=== PATIENT | female | born 1955 | race Caucasian/White ===

== ENCOUNTER → 2017-04-10 | Day surgery (SDC) | payer OTHER ==
--- NOTE | 2017-04-09 18:31 | History & Physical Pre-Op ---
General Information and HPI History of Present Illness: 61-year-old 1 para 1 with thickened endometrium on ultrasound admitted today for D&C hysteroscopy. She has been cleared by her countersinker for this Allergies/Medications Allergies: Coded Allergies: apple (Intermediate, THROAT ITCHING 12/02/15) celery (Intermediate, HIVES/ITCHY THROAT 12/02/15) tomato (Intermediate, HIVES/ITCHY THROAT 12/02/15) Uncoded Allergies: HAIR DYE (Severe, ANAPHYLAXIS 12/02/15) MELONS (Severe, ANAPHYLAXIS 04/02/17) CARROTS (Intermediate, HIVES/ITCHY THROAT 12/02/15) Home Med list Aspirin (Ecotrin) 81 MG TABLET.DR 1 TAB PO DAILY HEART HEALTH (Reported) Atorvastatin Calcium (Lipitor) 10 MG TABLET 1 TAB PO DAILY CHOLESTEROL ( Reported) CLOPIDOGREL BISULFATE (Clopidogrel) 75 MG TABLET 1 TAB PO DAILY BLOOD THINNER (Reported) Levothyroxine Sodium 50 MCG TABLET 1 TAB PO DAILY AC THYROID (Reported) Linagliptin (Tradjenta) 5 MG TABLET 1 TAB PO DAILY DIABETES (Reported) Metoprolol Tartrate (Lopressor) 25 MG TABLET 1 TAB PO BID BP (Reported) Olmesartan Medoxomil (Benicar) 20 MG TAB 1 TAB PO DAILY BP (Reported) Pantoprazole Sodium 40 MG TABLET.DR 1 TAB PO DAILY AC ACID REFLUX (Reported) Sertraline HCl 50 MG TABLET 1 TAB PO TID DEPRESSION (Reported) Vitamin E ([id number]) 400 IU SGL 1 SGL PO BID SUPPLEMENT (Reported) Past History Medical History Neurological: NONE EENT: NONE Cardiovascular: hypertension, hyperlipidemia, myocardial infarction, STENTS Respiratory: bronchitis Gastrointestinal: GERD Hepatic: FATTY LIVER Renal: NONE Musculoskeletal: NONE Psychiatric: NONE Endocrine: diabetes, hypothyroidism Blood Disorders: NONE Cancer(s): NONE 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 EENTM: Reports: no symptoms. Cardiovascular: Reports: no symptoms. Respiratory: Reports: no symptoms. GI: Reports: no symptoms. Genitourinary: Reports: no symptoms. Musculoskeletal: Reports: no symptoms. Skin: Reports: no symptoms. Neurological/Psychological: Reports: no symptoms. Hematologic/Endocrine: Reports: no symptoms. Immunologic/Allergic: Reports: no symptoms. All Other Systems: Reviewed and Negative Exam & Diagnostic Data Last 24 Hrs of Vital Signs/I&O vss Physical Exam: HEENT: Normocephalic atraumatic Chest: Clear to auscultation bilaterally Cardiovascular: Normal S1-S2 Abdomen: Soft nontender Pelvic: Deferred OR Extremities: No clubbing cyanosis or edema Assessment/Plan Assessment/Plan: Thickened endometrium on ultrasound, menopause D&C hysteroscopy As Ranked By This Provider Problem List: 1. Thickened endometrium
[~2017-04-10] VITALS: Ht 149.9 cm; Wt 68.9 kg
[~2017-04-10] MED LIST: ALPH-E-MIXED-4400 IU PO; ASPIR 8181 MG PO; ATORVASTATIN CA10 MG PO; BENICAR20 MG PO; CLOPIDOGREL75 MG PO; FIBERCON625 MG PO; IBUPROFEN600 MG PO; LEVOTHYROXINE0.05 M1 PO; LOPRESSOR 25MG25 MG PO; OXYCODONE5 M1 PO; PANTOPRAZOLE SO40 MG PO; PREDNISONE50 MG PO; SERTRALINE HCL50 MG PO; SERTRALINE HYD100 MG PO; SERTRALINE HYDR50 MG PO; TRADJENTA5 MG PO
--- NOTE | 2017-04-10 16:39 | Operative Report ---
Operative/Inv Procedure Report Surgery Date: 04/10/17 Name of Procedure: D and C hysteroscopy polypectomy Pre-Operative Diagnosis: Endometrial thickening Post-Operative Diagnosis: Endometrial polyp Estimated Blood Loss: scant Surgeon/Marine Surveyor: SALVADOR TALBOT MD Anesthesia: moderate sedation Operative/Procedure Note Note: To the operating room placed on the OR table in the dorsal supine position where she underwent anesthesia without complication. She was repositioned in a modified dorsal lithotomy and prepped and draped in usual sterile fashion. Examination under anesthesia revealed a stenotic cervix. An was inserted into the vagina and a single-tooth tenaculum was attached and she'll lip of the cervix. Cervix was injected with 0.5% Marcaine with epinephrine 2 mL in each quadrant. The cervix was slightly dilated for the endocervical curette. The curette was placed into the endocervix and a curettage was performed revealing a minimal amount of tissue. The uterus is then sounded to 9 cm anteverted. Cervix was further dilated. The hysteroscope was placed and the saline infusion was activated. There was a small polyp noted in the endometrial cavity. The hysteroscope was then removed. Sharp curettage followed and using polyp forceps the polyp was removed intact was approximately 5 cm long by 2 cm 1-1/2 cm in diameter. The isthmus removed patient was awakened and sent to recovery in good condition. All needle, sponge, and instrument counts were correct at the end of procedure 2.
== END ==
LOC: STS 07:00
DX: N84.0 Polyp of corpus uteri (principal); R93.8 Abnormal findings on diagnostic imaging of other specified body structures; I10 Essential (primary) hypertension; E11.9 Type 2 diabetes mellitus without complications; Z79.84 Long term (current) use of oral hypoglycemic drugs; I25.2 Old myocardial infarction; Z95.5 Presence of coronary angioplasty implant and graft; E03.9 Hypothyroidism, unspecified
CPT/HCPCS: 36415; J2250